=== PATIENT | female | born 1965 | race Caucasian/White ===

== ENCOUNTER 2017-01-09 11:36 | Inpatient (IN) | payer SELFPAY ==
[~2017-01-09] VITALS: Ht 147.3 cm; Wt 115.4 kg
[2017-01-09] VITALS (9 sets, daily range): BP systolic 137–201; BP diastolic 64–101; PULSE 84–111; RESP 18–26; TEMP 98.4–99; O2SAT 92–98
--- NOTE | 2017-01-09 11:59 | PD ---
HPI Chief Complaint: Chest Pain Time Seen by Provider: 11:53 Travel History International Travel<30 days: No Contact w/Intl Traveler<30days: No Traveled to known affect area: No History of Present Illness HPI Patient comes in complaining of shortness of breath and left-sided chest pain that began approximately 2 hours ago. Patient describes pain as pressure/ tightness like in nature and radiates to her back. Patient does have a history of asthma states this feels somewhat different. Denies any nausea, vomiting, abdominal pain, headache, diarrhea, headache, or numbness or tingling anywhere. Patient states she had a little bit of dyspnea on exertion last night while going up a slight hill about 10 steps. Patient used her rescue inhaler with minimal relief of her symptoms. Patient states she felt fine this morning until 2 hours prior to coming to the emergency department began having chest pain and shortness of breath. Patient denies doing anything for this prior coming to the emergency department. Patient has a history of hypertension and asthma but has not seen a primary care doctor proximally 2 years since moving from [place] secondary to lack of insurance. Patient reports that her legs do swell when she works on her feet all day however is resolved by morning. Denies any recent travel. PFSH Past Medical History Asthma: Yes Hypertension: Yes ?: Not Past Surgical History Appendectomy: Yes Hysterectomy: Yes Social History Alcohol Use: No Tobacco Use: No Substance Use: No Allergies-Medications (Allergen,Severity, Reaction): Coded Allergies: [place] (Verified Allergy, Unknown, 01/09/17) Peanut (Verified Allergy, Unknown, 01/09/17) Penicillin (Verified Allergy, Unknown, 01/09/17) Reported Meds & Prescriptions Reported Meds & Active Scripts Active No Active Prescriptions or Reported Medications Review of Systems Except as stated in HPI: all other systems reviewed are Neg Physical Exam Narrative GENERAL: Well-developed, overly nourished, in mild distress, and non-ill appearing. SKIN: Focused skin assessment warm and dry. HEAD: Atraumatic. Normocephalic. EYES: Pupils equal and round. EOMI. No scleral icterus. No injection or drainage. ENT: No nasal bleeding or discharge. Mucous membranes pink and moist. NECK: Trachea midline. Supple. No nuclear rigidity. CARDIOVASCULAR: Regular rate and rhythm. No murmur appreciated. Radial pulses 2+, intact, and equal bilaterally. RESPIRATORY: Accessory muscle use. Mild respiratory distress. Scant expiratory wheezing throughout. MUSCULOSKELETAL: No obvious deformities. No clubbing. No cyanosis. No edema. Full range of motion. NEUROLOGICAL: Awake and alert. No obvious cranial nerve deficits. Motor grossly within normal limits. Normal speech. PSYCHIATRIC: Appropriate mood and affect; insight and judgment normal. Data Data Last Documented VS Vital Signs Date Time Temp Pulse Resp B/P Pulse Ox O2 Delivery O2 Flow Rate FiO2 01/09/17 12:50 90 18 159/95 97 01/09/17 11:57 Room Air 01/09/17 11:40 98.4 Orders Complete Blood Count With Diff (01/09/17 11:51) Basic Metabolic Panel (Bmp) (01/09/17 11:51) B-Type Natriuretic Peptide (01/09/17 11:51) Act Partial Throm Time (Ptt) (01/09/17 11:51) Prothrombin Time / Inr (Pt) (01/09/17 11:51) Magnesium (Mg) (01/09/17 11:51) Ckmb (Isoenzyme) Profile (01/09/17 11:51) Troponin I (01/09/17 11:51) Iv Access Insert/Monitor (01/09/17 11:51) Electrocardiogram (01/09/17 11:51) Ecg Monitoring (01/09/17 11:51) Oximetry (01/09/17 11:51) Oxygen Administration (01/09/17 11:51) Chest, Single Ap (01/09/17 11:51) Sodium Chloride 0.9% Flush (Ns Flush) (01/09/17 12:00) Albuterol-Ipratropium Neb (Duoneb Neb) (01/09/17 12:00) Aspirin Chew (Aspirin Chew) (01/09/17 12:00) Nitroglycerin 2% Oint (Nitroglycerin 2% (01/09/17 12:00) Albuterol-Ipratropium Neb (Duoneb Neb) (01/09/17 12:30) Methylprednisolone So Succ Inj (Solumedr (01/09/17 12:30) Lactic Acid Sepsis Protocol (01/09/17 12:50) Blood Culture (01/09/17 12:50) Ceftriaxone Inj (Rocephin Inj) (01/09/17 13:00) Azithromycin Inj (Zithromax Inj) (01/09/17 13:00) CKMB (01/09/17 11:55) CKMB% (01/09/17 11:55) Calcium Gluconate Inj (Calcium Gluconate (01/09/17 13:15) Insulin Human Regular Inj (Novolin R Inj (01/09/17 13:15) Dextrose 50% In Carmen (Vial) Inj (D50w (Vi (01/09/17 13:15) Sodium Bicarbonate 8.4% Inj (Sodium Bica (01/09/17 13:15) Sodium Polysty Sulfate Liq (Kayexalate L (01/09/17 13:15) Sodium Chlor 0.9% 1000 Ml Inj (Ns 1000 M (01/09/17 14:00) Admit Order (Ed Use Only) (01/09/17 14:24) Labs Laboratory Tests Test 01/09/17 01/09/17 11:55 13:15 White Blood Count 13.0 TH/MM3 Red Blood Count 4.51 MIL/MM3 Hemoglobin 13.1 GM/DL Hematocrit 39.6 % Mean Corpuscular Volume 87.8 FL Mean Corpuscular Hemoglobin 29.0 PG Mean Corpuscular Hemoglobin 33.0 % Concent Red Cell Distribution Width 13.9 % Platelet Count 335 TH/MM3 Mean Platelet Volume 8.9 FL Neutrophils (%) (Auto) 64.0 % Lymphocytes (%) (Auto) 30.3 % Monocytes (%) (Auto) 3.9 % Eosinophils (%) (Auto) 1.3 % Basophils (%) (Auto) 0.5 % Neutrophils # (Auto) 8.3 TH/MM3 Lymphocytes # (Auto) 3.9 TH/MM3 Monocytes # (Auto) 0.5 TH/MM3 Eosinophils # (Auto) 0.2 TH/MM3 Basophils # (Auto) 0.1 TH/MM3 CBC Comment DIFF FINAL Differential Comment Prothrombin Time 10.2 SEC Prothromb Time International 0.9 RATIO Ratio Activated Partial 25.7 SEC Thromboplast Time Sodium Level 136 MEQ/L Potassium Level 5.7 MEQ/L Chloride Level 106 MEQ/L Carbon Dioxide Level 23.3 MEQ/L Anion Gap 7 MEQ/L Blood Urea Nitrogen 15 MG/DL Creatinine 0.93 MG/DL Estimat Glomerular Filtration 63 ML/MIN Rate Random Glucose 140 MG/DL Calcium Level 8.9 MG/DL Magnesium Level 1.8 MG/DL Total Creatine Kinase 307 U/L Creatine Kinase MB 4.0 NG/ML Creatine Kinase MB % 1.3 % Troponin I LESS THAN 0.02 NG/ML B-Type Natriuretic Peptide 133 PG/ML Lactic Acid Level 2.7 mmol/L MDM Medical Decision Making Medical Screen Exam Complete: Yes Emergency Medical Condition: Yes Interpretation(s) EKG reviewed by Dr. Kohler shows normal sinus rhythm with ventricular rate of 86. No STEMI. Differential Diagnosis Acute coronary syndrome, CHF exacerbation, asthma exacerbation, pneumonia, electrolyte abnormality, other Narrative Course 1218 patient reassessed status post initial DuoNeb reports improvement of symptoms. Lungs reassessed more wheezing noted throughout. Patient moving air easier. Will add additional DuoNeb as well as Solu-Medrol and reassess. Labs pending. Discussed patient with Dr. Kohler, who saw and evaluated the patient is in agreement with plan of care. 1330 patient reports improvement of symptoms status post do an abscess and Solu- Medrol. Patient still complaining of some chest discomfort on left side, but overall symptoms have improved. [address] Kohler, who recommends having patient admitted for further treatment and evaluation. Discussed all findings and plan of care with patient was agreeable for admission. All questions were answered. Sepsis Criteria SIRS Criteria (2 or more): Heart rate over 90, RR > 20 or PaCO2 < 32, WBC > 01272, < 4000 or > 10% bands Sepsis Criteria (SIRS+source): Infect source susp/known Severe Sepsis (+one): Lactate >2 Physician Communication Physician Communication [address] Galeano, who is agreeable to admit the patient. Diagnosis Primary Impression: Sepsis Qualified Code: A41.9 - Sepsis, due to unspecified organism Additional Impressions: Pneumonia Qualified Code: J18.9 - Pneumonia of both lower lobes due to infectious organism Hyperkalemia Chest pain Qualified Code: R07.9 - Chest pain, unspecified type Admitting Information Admitting Physician Requests: Admit Scripts No Active Prescriptions or Reported Meds Condition: Stable Addy Rojas January 09, 2017 11:59
[2017-01-09] MEDS ORDERED: ASPIRIN 81 MG CHEW TAB PO ONE (12:00)
[2017-01-09] MEDS ORDERED: NITROGLYCERIN 2% OINT 1 GM PACKET TOP ONE (12:00)
[2017-01-09] MEDS ORDERED: RESP: ALBUTEROL 2.5 MG/IPRATROPIUM 0.5 MG NEB (SCH) INH ONE (12:00)
[2017-01-09] MEDS ORDERED: SODIUM CHLORIDE 0.9% FLUSH 10 ML FLUSH IVF PRN (12:00)
--- NOTE | 2017-01-09 12:00 | PD ---
Data Data Last Documented VS Vital Signs Date Time Temp Pulse Resp B/P Pulse Ox O2 Delivery O2 Flow Rate FiO2 01/09/17 12:50 90 18 159/95 97 01/09/17 11:57 Room Air 01/09/17 11:40 98.4 Orders Complete Blood Count With Diff (01/09/17 11:51) Basic Metabolic Panel (Bmp) (01/09/17 11:51) B-Type Natriuretic Peptide (01/09/17 11:51) Act Partial Throm Time (Ptt) (01/09/17 11:51) Prothrombin Time / Inr (Pt) (01/09/17 11:51) Magnesium (Mg) (01/09/17 11:51) Ckmb (Isoenzyme) Profile (01/09/17 11:51) Troponin I (01/09/17 11:51) Iv Access Insert/Monitor (01/09/17 11:51) Electrocardiogram (01/09/17 11:51) Ecg Monitoring (01/09/17 11:51) Oximetry (01/09/17 11:51) Oxygen Administration (01/09/17 11:51) Chest, Single Ap (01/09/17 11:51) Sodium Chloride 0.9% Flush (Ns Flush) (01/09/17 12:00) Albuterol-Ipratropium Neb (Duoneb Neb) (01/09/17 12:00) Aspirin Chew (Aspirin Chew) (01/09/17 12:00) Nitroglycerin 2% Oint (Nitroglycerin 2% (01/09/17 12:00) Albuterol-Ipratropium Neb (Duoneb Neb) (01/09/17 12:30) Methylprednisolone So Succ Inj (Solumedr (01/09/17 12:30) Lactic Acid Sepsis Protocol (01/09/17 12:50) Blood Culture (01/09/17 12:50) Ceftriaxone Inj (Rocephin Inj) (01/09/17 13:00) Azithromycin Inj (Zithromax Inj) (01/09/17 13:00) CKMB (01/09/17 11:55) CKMB% (01/09/17 11:55) Calcium Gluconate Inj (Calcium Gluconate (01/09/17 13:15) Insulin Human Regular Inj (Novolin R Inj (01/09/17 13:15) Dextrose 50% In Carmen (Vial) Inj (D50w (Vi (01/09/17 13:15) Sodium Bicarbonate 8.4% Inj (Sodium Bica (01/09/17 13:15) Sodium Polysty Sulfate Liq (Kayexalate L (01/09/17 13:15) Sodium Chlor 0.9% 1000 Ml Inj (Ns 1000 M (01/09/17 14:00) Admit Order (Ed Use Only) (01/09/17 14:24) Labs Laboratory Tests Test 01/09/17 01/09/17 11:55 13:15 White Blood Count 13.0 TH/MM3 Red Blood Count 4.51 MIL/MM3 Hemoglobin 13.1 GM/DL Hematocrit 39.6 % Mean Corpuscular Volume 87.8 FL Mean Corpuscular Hemoglobin 29.0 PG Mean Corpuscular Hemoglobin 33.0 % Concent Red Cell Distribution Width 13.9 % Platelet Count 335 TH/MM3 Mean Platelet Volume 8.9 FL Neutrophils (%) (Auto) 64.0 % Lymphocytes (%) (Auto) 30.3 % Monocytes (%) (Auto) 3.9 % Eosinophils (%) (Auto) 1.3 % Basophils (%) (Auto) 0.5 % Neutrophils # (Auto) 8.3 TH/MM3 Lymphocytes # (Auto) 3.9 TH/MM3 Monocytes # (Auto) 0.5 TH/MM3 Eosinophils # (Auto) 0.2 TH/MM3 Basophils # (Auto) 0.1 TH/MM3 CBC Comment DIFF FINAL Differential Comment Prothrombin Time 10.2 SEC Prothromb Time International 0.9 RATIO Ratio Activated Partial 25.7 SEC Thromboplast Time Sodium Level 136 MEQ/L Potassium Level 5.7 MEQ/L Chloride Level 106 MEQ/L Carbon Dioxide Level 23.3 MEQ/L Anion Gap 7 MEQ/L Blood Urea Nitrogen 15 MG/DL Creatinine 0.93 MG/DL Estimat Glomerular Filtration 63 ML/MIN Rate Random Glucose 140 MG/DL Calcium Level 8.9 MG/DL Magnesium Level 1.8 MG/DL Total Creatine Kinase 307 U/L Creatine Kinase MB 4.0 NG/ML Creatine Kinase MB % 1.3 % Troponin I LESS THAN 0.02 NG/ML B-Type Natriuretic Peptide 133 PG/ML Lactic Acid Level 2.7 mmol/L [facility] Medical Record Reviewed: Yes Supervised Visit with EM[facility]: Yes Narrative Course I, Dr. Kohler, have reviewed the advance practice practitioner's documentation and am in agreement, met with the patient face to face, made the diagnosis, and the medical decision making was done by me. *My assessment and Findings: CBC & BMP Diagram 01/09/17 11:55 Tn < 0.02 BNP 133 EKG reveals a sinus rhythm at a rate of 100, normal axis and intervals, no ischemic injury pattern Last 24 hours Impressions Chest X-Ray 01/09/17 1151 Signed Impressions: Service Date/Time: Monday, January 09, 2017 12:01 - CONCLUSION: Moderate left mid to lower lung consolidation. Mild right lower lung parenchymal opacity. Omar Lynch MD Pt has PNA, CP and dyspnea. Hyperkalemia also noted and treated here with d50/ insulin, kayexylate, calcium and bicarb one ampule. Admission planned to management of the aforementioned. Wiliam Kohler MD January 09, 2017 12:00
[2017-01-09 12:15] LABS: AUTOMATED NEUTROPHIL # 8.3 TH/MM3 (1.8-7.7); BASOPHIL # 0.1 TH/MM3 (0-0.2); BASOPHIL % 0.5 % (0.0-2.0); EOSINOPHIL # 0.2 TH/MM3 (0-0.4); EOSINOPHIL % 1.3 % (0.0-4.0); HEMATOCRIT 39.6 % (35.0-46.0); HEMO FLAGS DIFF FINAL; LYMPH % 30.3 % (9.0-44.0); LYMPHOCYTE # 3.9 TH/MM3 (1.0-4.8); MEAN CELL VOLUME 87.8 FL (80.0-100.0); MONO % 3.9 % (0.0-8.0); PLATELET COUNT 335 TH/MM3 (150-450); RED BLOOD COUNT 4.51 MIL/MM3 (4.00-5.30); RED CELL DISTRIBUTION WIDTH 13.9 % (11.6-17.2)
[2017-01-09] MEDS: RESP: ALBUTEROL 2.5 MG/IPRATROPIUM 0.5 MG NEB (SCH) INH (12:28)
[2017-01-09 12:30] LABS: APTT (PATIENT) 25.7 SEC (24.3-30.1); INTERNATIONAL NORMALIZED RATIO 0.9 RATIO; PROTHROMBIN TIME - PATIENT 10.2 SEC (9.8-11.6)
[2017-01-09] MEDS ORDERED: methylPREDNISolone SOD SUCC 125 MG/2 ML VIAL IV PUSH ONE (12:30)
--- NOTE | 2017-01-09 12:44 | RADRPT ---
EXAM DATE/TIME: 01/09/2017 12:01 [facility] COMPARISON: No previous studies available for comparison. INDICATIONS : Short of breath for a day. MEDICAL HISTORY : Asthma. SURGICAL HISTORY : None. ENCOUNTER: Initial ACUITY: 1 day PAIN SCORE: 0/10 LOCATION: Bilateral chest FINDINGS: Single AP view of the chest. Moderate-sized area of left midlung consolidation. Mild right lung base opacity. Cardiomediastinal silhouette within normal limits. No evidence of pleural effusion or pneumo thorax. CONCLUSION: Moderate left mid to lower lung consolidation. Mild right lower lung parenchymal opacity. Omar Lynch MD on January 09, 2017 at 12:42 Board Certified Radiologist. This report was verified electronically.
[2017-01-09 12:50] LABS: ANION GAP 7 MEQ/L (5-15); BICARBONATE 23.3 MEQ/L (21.0-32.0); BLOOD UREA NITROGEN 15 MG/DL (7-18); CHLORIDE 106 MEQ/L (98-107); GLOMERULAR FILTRATION RATE 63 ML/MIN (>89); MAGNESIUM 1.8 MG/DL (1.5-2.5); POTASSIUM 5.7 MEQ/L (3.5-5.1); SODIUM (NA) 136 MEQ/L (136-145)
[2017-01-09] MEDS ORDERED: cefTRIAXone INJ 1,000 MG in SODIUM CHLORIDE 0.9% INJ 100 ML IV ONE (13:00)
[2017-01-09] MEDS ORDERED: AZITHROMYCIN INJ 500 MG in SODIUM CHLOR 0.9% 250 ML INJ 250 ML IV ONE (13:00)
[2017-01-09 13:01] LABS: CREATINE KINASE 307 U/L (26-192)
[2017-01-09] MEDS ORDERED: INSULIN HUMAN REGULAR 1,000 UNITS/10 ML VIAL IV PUSH ONE (13:15)
[2017-01-09] MEDS ORDERED: DEXTROSE 50% IN WATER 50 ML VIAL(D50) IV PUSH ONE (13:15)
[2017-01-09] MEDS ORDERED: CALCIUM GLUCONATE 10% 1 GM/10 ML VIAL SLOW IVP ONE (13:15)
[2017-01-09] MEDS ORDERED: SODIUM BICARBONATE 8.4% SOLN 50 MEQ/50 ML VIAL SLOW IVP ONE (13:15)
[2017-01-09] MEDS ORDERED: SODIUM POLYSTYRENE SULFONATE SUSP 15 GM/60 ML CUP PO ONE (13:15)
[2017-01-09] MEDS ORDERED: SODIUM CHLOR 0.9% 1000 ML INJ 1,000 ML IV ONE (14:00)
[2017-01-09] MEDS ORDERED: RESP: ALBUTEROL CONC 2.5 MG/0.5 ML NEB INH ONE (15:00)
[2017-01-09] MEDS ORDERED: ONDANSETRON HCL 4 MG/2 ML VIAL IVP PRN (15:00)
[2017-01-09] MEDS ORDERED: NALOXONE HCL 0.4 MG/ML AMP IV PRN (15:00)
[2017-01-09] MEDS ORDERED: SODIUM CHLORIDE 0.9% FLUSH 10 ML FLUSH IV FLUSH PRN (15:00)
[2017-01-09] MEDS ORDERED: MAGNESIUM HYDROXIDE SUSP 30 ML CUP PO PRN (15:00)
--- NOTE | 2017-01-09 15:02 | HHI.HP ---
[facility] Service [facility] Primary Care Physician No Primary Care Physician Admission Diagnosis sepsis, pneumonia, hyperkalemia, chest pain Diagnoses: Chief Complaint: Chest pain, shortness of breath Travel History International Travel<30 Days: No Contact w/Intl Traveler <30 Da: No Traveled to Known Affected Are: No Sepsis Criteria SIRS Criteria (2 or more): Heart rate over 90, RR > 20 or PaCO2 < 32, WBC > 70647, < 4000 or > 10% bands Severe Sepsis (+one): Lactate >2 Criteria Outcome: Meets SIRS criteria, Meets sepsis criteria, Meets severe sepsis criteria History of Present Illness Ms. Platt is a pleasant 51-year-old female with a history of hypertension, asthma who presents to the emergency department today due to left-sided chest pain and shortness of breath and diaphoresis. Patient describes left-sided chest pressure/tightness and radiating to her back. Chest discomfort has a squeezing quality, worse with exertion, improves with rest. She is having frequent episodes of diaphoresis as well. Last night when she was walking from her car to her apartment, she felt sweaty and short of breath. Last night she did not sleep much. This morning she woke up with left sided chest discomfort, had sweating and shortness of breath. No fever, chills. Patient also denies any cough. On arrival temperature 98.4 pulse 92 respirations 26 blood pressure 201/ 101 pulse oximetry 98% on room air. She denies any nausea, vomiting, abdominal pain, headache, diarrhea. Denies any changes in bowel or bladder habits. Review of Systems Except as stated in HPI: all other systems reviewed are Neg Past Family Social History Past Medical History Hypertension, asthma Past Surgical History Appendectomy and hysterectomy Reported Medications Currently does not take any medication on a regular basis. Allergies: Coded Allergies: [place] (Verified Allergy, Unknown, 01/09/17) Peanut (Verified Allergy, Unknown, 01/09/17) Penicillin (Verified Allergy, Unknown, 01/09/17) Family History Mother had heart disease in her 50s. Father had heart disease as well in his 50s. Social History Denies using alcohol tobacco or illicit substance. Physical Exam Vital Signs Vital Signs Date Time Temp Pulse Resp B/P Pulse Ox O2 Delivery O2 Flow Rate FiO2 01/09/17 12:50 90 18 159/95 97 01/09/17 11:57 Room Air 01/09/17 11:57 97 Room Air 01/09/17 11:47 98 Room Air 01/09/17 11:40 98.4 92 26 201/101 98 Physical Exam GENERAL: This is a well-nourished, well-developed patient, in no apparent distress. Morbidly obese. SKIN: No rashes, ecchymoses or lesions. Warm and dry. HEAD: Atraumatic. Normocephalic. No temporal or scalp tenderness. EYES: Pupils equal round and reactive. No injection or drainage. ENT: Nose without bleeding, purulent drainage or septal hematoma. Airway patent. NECK: Trachea midline. No lymphadenopathy. Supple, nontender, no meningeal signs. CARDIOVASCULAR: Regular rhythm, mildly tachycardic without murmurs, gallops, or rubs. No JVD. RESPIRATORY: Clear to auscultation. Breath sounds equal bilaterally. No wheezes , rales, or rhonchi. GASTROINTESTINAL: Abdomen soft, non-tender, nondistended. No guarding. MUSCULOSKELETAL: Extremities without clubbing, cyanosis, or edema. NEUROLOGICAL: Awake and alert. Cranial nerves II through XII intact. No focal neurological deficits. Normal speech. Laboratory Laboratory Tests Test 01/09/17 01/09/17 11:55 13:15 White Blood Count 13.0 Red Blood Count 4.51 Hemoglobin 13.1 Hematocrit 39.6 Mean Corpuscular Volume 87.8 Mean Corpuscular Hemoglobin 29.0 Mean Corpuscular Hemoglobin 33.0 Concent Red Cell Distribution Width 13.9 Platelet Count 335 Mean Platelet Volume 8.9 Neutrophils (%) (Auto) 64.0 Lymphocytes (%) (Auto) 30.3 Monocytes (%) (Auto) 3.9 Eosinophils (%) (Auto) 1.3 Basophils (%) (Auto) 0.5 Neutrophils # (Auto) 8.3 Lymphocytes # (Auto) 3.9 Monocytes # (Auto) 0.5 Eosinophils # (Auto) 0.2 Basophils # (Auto) 0.1 CBC Comment DIFF FINAL Differential Comment Prothrombin Time 10.2 Prothromb Time International 0.9 Ratio Activated Partial 25.7 Thromboplast Time Sodium Level 136 Potassium Level 5.7 Chloride Level 106 Carbon Dioxide Level 23.3 Anion Gap 7 Blood Urea Nitrogen 15 Creatinine 0.93 Estimat Glomerular Filtration 63 Rate Random Glucose 140 Calcium Level 8.9 Magnesium Level 1.8 Total Creatine Kinase 307 Creatine Kinase MB 4.0 Creatine Kinase MB % 1.3 Troponin I LESS THAN 0.02 B-Type Natriuretic Peptide 133 Lactic Acid Level 2.7 Date/Time Procedure Status Source Growth 01/09/17 13:15 Aerobic Blood Culture Received Blood Peripheral Pending 01/09/17 13:15 Anaerobic Blood Culture Received Blood Peripheral Pending Result Diagram: 01/09/17 1155 01/09/17 1155 Imaging Last Impressions Chest X-Ray 01/09/17 1151 Signed Impressions: Service Date/Time: Monday, January 09, 2017 12:01 - CONCLUSION: Moderate left mid to lower lung consolidation. Mild right lower lung parenchymal opacity. Omar Lynch MD Assessment and Plan Problem List: (1) Severe sepsis ICD Code: A41.9 Status: Acute (2) Pneumonia ICD Code: J18.9 Status: Acute (3) Chest pain ICD Code: R07.9 Status: Acute (4) Hyperkalemia ICD Code: E87.5 Status: Acute (5) Morbid obesity with BMI of 50.0-59.9, adult ICD Code: E66.01 Status: Acute Assessment and Plan Ms. Platt is a 51-year-old female with a history of hypertension, asthma who presents to the emergency department today due to left-sided chest pain, shortness of breath, diaphoresis. Her chest pain is increased with exertion and decreased with rest. Severe sepsis (WBC 13,000, heart rate 92, respiration 26, chest x-ray finding of moderate left mid to lower lung consolidation, lactic acid 2.7) Community Acquired Pneumonia - Patient received ceftriaxone 1 g and azithromycin 500 mg in the emergency department. - Continue Levaquin 750mg IV for now - Levaquin duration 7 days. - Duoneb Q4 hours PRN - Supplemental oxygen as needed to keep O2 sat above 90%. Chest pain - We'll check troponin 3. - Morbid obesity, hypertension, strong family history are all risk factors for heart disease for this patient. - We'll consider nuclear stress test in the morning. Nothing by mouth midnight except for medications. No caffeine after 7 PM. . Hyperkalemia - Potassium 5.7 patient received Kayexalate in the ED. - We'll give 10 mg of albuterol for hyperkalemia. - Recheck potassium this afternoon. Hypertension - Currently normotensive. If needed will start patient on amlodipine and/or lisinopril. Asthma - Continue DuoNeb PRN Morbid obesity - Counselled patient about lifestyle modifications, diet and exercise. Patient is motivated to loose weight. Full code. Ronald. Physician Certification 2 Midnight Certification Type: Admission for Inpatient Services Order for Inpatient Services The services are ordered in accordance with Medicare regulations or non- Medicare payer requirements, as applicable. In the case of services not specified as inpatient-only, they are appropriately provided as inpatient services in accordance with the 2-midnight benchmark. Estimated LOS (days): 2 days is the estimated time the patient will need to remain in the hospital, assuming treatment plan goals are met and no additional complications. Post-Hospital Plan: Home Problem Qualifiers (1) Pneumonia: Qualified Code: J18.9 - Pneumonia of both lower lobes due to infectious organism (2) Chest pain: Qualified Code: R07.9 - Chest pain, unspecified type Maggie Galeano DO January 09, 2017 3:02 pm
[2017-01-09 15:28] LABS: LACTIC ACID GHOST NOT REPORTABLE
[2017-01-09] MEDS: ENOXAPARIN SODIUM 40 MG/0.4 ML SYRINGE SQ SCH (15:44)
[2017-01-09] MEDS: ACETAMINOPHEN 325 MG TAB PO PRN (15:44)
[2017-01-09] MEDS ORDERED: RESP: ALBUTEROL 2.5 MG/IPRATROPIUM 0.5 MG NEB (PRN) NEB (17:45)
[2017-01-09] MEDS ORDERED: KETOROLAC TROMETHAMINE 60 MG/2 ML (IM) VIAL IM ONE (18:00)
[2017-01-09] MEDS: SODIUM CHLORIDE 0.9% FLUSH 10 ML FLUSH IV FLUSH SCH (21:00)
[2017-01-09 21:29] LABS: POTASSIUM 4.1 MEQ/L (3.5-5.1)
[2017-01-09] MEDS ORDERED: SODIUM CHLORID 0.9% 500 ML INJ 500 ML IV ONE (22:00)
[2017-01-09] MEDS ORDERED: CYCL1TAB29 PO (23:25)
[2017-01-09] MEDS ORDERED: TEMA30CA PO (23:25)
[2017-01-09] MEDS ORDERED: TRAZ50TA12 PO (23:25)
[2017-01-09] MEDS ORDERED: TEMAZEPAM 7.5 MG CAP PO ONE (23:30)
[2017-01-10] VITALS (9 sets, daily range): BP systolic 126–168; BP diastolic 59–90; PULSE 93–103; RESP 16–18; TEMP 97.7–98.7; O2SAT 94–98
[2017-01-10 00:08] LABS: BLOOD GAS BASE EXCESS -4.4 mmol/L (-2-2); BLOOD GAS CARBOXYHEMOGLOBIN 1.1 % (0-4); BLOOD GAS HCO3 20 mmol/L (22-26); BLOOD GAS METHEMOGLOBIN 0.8 % (0-2); BLOOD GAS O2 HGB SATURATION 96 % (90-100); BLOOD GAS OXYGEN CONTENT 15.5 Vol % (12.0-20.0); BLOOD GAS PCO2 36 mmHg (38-42); BLOOD GAS PO2 101 mmHg (61-120); BLOOD GAS TOTAL HGB 11.4 G/DL (12.0-16.0); TEMP CORR TO 98.6
[2017-01-10 00:09] LABS: CRITICAL VALUE NO; DRAW SITE RT RADIAL; LITER FLOW 2 L/M; NUMBER OF ARTERIAL PUNCTURES 1; OXYGEN DEVICE NASAL CANNULA; STAT YES; ULNAR PULSE PRESENT
[2017-01-10] MEDS ORDERED: SODIUM CHLORID 0.9% 500 ML INJ 500 ML IV ONE (01:00)
[2017-01-10] MEDS ORDERED: IOHEXOL 350 MG/ML 10 ML VIAL (for RAD DIAG) IV ONE (01:47)
--- NOTE | 2017-01-10 01:59 | RADRPT ---
EXAM DATE/TIME: 01/10/2017 01:35 [facility] COMPARISON: No previous studies available for comparison. INDICATIONS : Shortness of breath. Evaluate for embolism. IV CONTRAST: 75 cc Omnipaque 350 (iohexol) IV RADIATION DOSE: 25.44 CTDIvol (mGy) MEDICAL HISTORY : Hypertension. SURGICAL HISTORY : Hysterectomy. ENCOUNTER: Initial ACUITY: 1 day PAIN SCALE: 0/10 LOCATION: Bilateral chest TECHNIQUE: Volumetric scanning of the chest was performed using a pulmonary embolism protocol MIP images were re constructed. Using automated exposure control and adjustment of the mA and/or kV according to patien t size, radiation dose was kept as low as reasonably achievable to obtain optimal diagnostic quality images. FINDINGS: PULMONARY ARTERIES: No filling defects are seen in the pulmonary arteries through the segmental level. LUNGS: Groundglass infiltrates scattered throughout the left upper lobe. Remaining lungs are clear. Mild ate lectasis within the basilar segments on the left. PLEURAE: Tiny left pleural effusion. No effusion on the right. MEDIASTINUM: There is good visualization of the great vessels of the middle mediastinum. No evidence of mediastin al or hilar adenopathy/mass. MUSCULOSKELETAL: Within normal limits for patient age. MISCELLANEOUS: The visualized upper abdominal organs demonstrate no acute abnormality. CONCLUSION: 1. No PE. 2. Left upper lobe infiltrate likely infectious in etiology with small left effusion. Irvin Krishnamurthy Jr., MD on January 10, 2017 at 1:55 Board Certified Radiologist. This report was verified electronically.
[2017-01-10 02:32] LABS: AUTOMATED NEUTROPHIL # 8.4 TH/MM3 (1.8-7.7); BASOPHIL % 0.2 % (0.0-2.0); HEMATOCRIT 34.2 % (35.0-46.0); HEMO FLAGS DIFF FINAL; LYMPH % 13.5 % (9.0-44.0); LYMPHOCYTE # 1.4 TH/MM3 (1.0-4.8); MEAN CELL VOLUME 88.8 FL (80.0-100.0); MEAN CORPUSCULAR HEMOGLOBIN 28.6 PG (27.0-34.0); MEAN CORPUSCULAR HGB CONC 32.2 % (32.0-36.0); NEUT % 83.3 % (16.0-70.0); PLATELET COUNT 287 TH/MM3 (150-450); RED BLOOD COUNT 3.85 MIL/MM3 (4.00-5.30); RED CELL DISTRIBUTION WIDTH 13.8 % (11.6-17.2); WHITE BLOOD COUNT 10.1 TH/MM3 (4.0-11.0)
[2017-01-10 03:01] LABS: ANION GAP 11 MEQ/L (5-15); BICARBONATE 22.4 MEQ/L (21.0-32.0); BLOOD UREA NITROGEN 9 MG/DL (7-18); CHLORIDE 106 MEQ/L (98-107); GLOMERULAR FILTRATION RATE 73 ML/MIN (>89); HDL CHOLESTEROL 54.7 MG/DL (40.0-60.0); LDL CHOLESTEROL 127 MG/DL (0-99); POTASSIUM 3.8 MEQ/L (3.5-5.1); SODIUM (NA) 139 MEQ/L (136-145)
--- NOTE | 2017-01-10 06:18 | EKG ---
Date Performed: 01/09/2017 Time Performed: 11:58:02 PTAGE: 51 years EKG: Sinus rhythm MINIMAL VOLTAGE CRITERIA FOR LVH, CONSIDER NORMAL VARIANT BORDERLINE ECG NO PREVIOUS TRACING DOCTOR: Julio March Interpretating Date/Time 01/10/2017 06:17:37
[2017-01-10] MEDS: SODIUM CHLORIDE 0.9% FLUSH 10 ML FLUSH IV FLUSH SCH ×2 (08:43→20:01)
[2017-01-10] MEDS: LEVOFLOXACIN 750 MG PREMIX INJ 150 ML IV SCH (08:43)
[2017-01-10] MEDS ORDERED: LEVOFLOXACIN 750 MG TAB PO SCH (09:00)
[2017-01-10] MEDS ORDERED: PNEUMOCOCCAL POLYVALENT INJ 25 MCG/0.5 ML SYR IM ONE (10:00)
[2017-01-10] MEDS ORDERED: REGADENOSON INJ 0.4 MG/5 ML SYR ONE (13:58)
[2017-01-10] MEDS: ENOXAPARIN SODIUM 40 MG/0.4 ML SYRINGE SQ SCH (15:43)
[2017-01-10] MEDS ORDERED: TEMAZEPAM 15 MG CAP PO PRN (16:00)
--- NOTE | 2017-01-10 16:00 | HHI.PR ---
Subjective Remarks Follow up for pneumonia, chest pain. Patient is doing well, came back from stress test. Sitting in the chair. No fever, chills. She still has some left sided chest discomfort. Objective Vitals Vital Signs Date Time Temp Pulse Resp B/P Pulse Ox O2 Delivery O2 Flow Rate FiO2 01/10/17 15:00 98 01/10/17 12:00 98.0 97 16 156/72 98 01/10/17 10:23 94 Nasal Cannula 2.00 01/10/17 08:00 97.8 98 16 126/61 94 01/10/17 04:00 98.0 99 18 128/59 95 01/10/17 00:00 Nasal Cannula 2.00 01/10/17 00:00 98.2 103 18 132/64 94 01/09/17 22:00 94 Nasal Cannula 2.00 01/09/17 22:00 Nasal Cannula 2.00 01/09/17 21:18 98.7 106 22 150/81 98 01/09/17 20:00 98.7 111 18 151/73 94 01/09/17 19:41 88 01/09/17 17:31 104 01/09/17 16:40 99.0 102 18 137/64 92 I/O 01/09/17 01/09/17 01/09/17 01/10/17 01/10/17 01/10/17 07:00 15:00 23:00 07:00 15:00 23:00 Intake Total 240 ml 1000 ml 100 ml Balance 240 ml 1000 ml 100 ml Intake Oral 240 ml 0 ml IV Total 1000 ml 100 ml # Voids 2 1 # Bowel Movements 0 0 Result Diagram: 01/10/177 01/10/17 [address] Angiography 01/10/17 0000 Signed Impressions: Service Date/Time: Tuesday, January 10, 2017 01:35 - CONCLUSION: 1. No PE. 2. Left upper lobe infiltrate likely infectious in etiology with small left effusion. Irvin Krishnamurthy Jr., MD Chest X-Ray 01/09/17 1151 Signed Impressions: Service Date/Time: Monday, January 09, 2017 12:01 - CONCLUSION: Moderate left mid to lower lung consolidation. Mild right lower lung parenchymal opacity. Omar Lynch MD Objective Remarks GENERAL: AOX3, NAD. Morbidly obese. SKIN: Warm and dry. HEAD: Normocephalic. EYES: No scleral icterus. No injection or drainage. NECK: Supple, trachea midline. No JVD or lymphadenopathy. CARDIOVASCULAR: Regular rate and rhythm without murmurs, gallops, or rubs. RESPIRATORY: Breath sounds equal bilaterally. No accessory muscle use. GASTROINTESTINAL: Abdomen soft, non-tender, nondistended. MUSCULOSKELETAL: No cyanosis, or edema. BACK: Nontender without obvious deformity. No CVA tenderness. Procedures Nuclear stress test. Results pending. A/P Problem List: (1) Severe sepsis ICD Code: A41.9 Status: Acute (2) Pneumonia ICD Code: J18.9 Status: Acute (3) Chest pain ICD Code: R07.9 Status: Acute (4) Hyperkalemia ICD Code: E87.5 Status: Acute (5) Morbid obesity with BMI of 50.0-59.9, adult ICD Code: E66.01 Status: Acute Assessment and Plan Ms. Platt is a 51-year-old female with a history of hypertension, asthma who presents to the emergency department today due to left-sided chest pain, shortness of breath, diaphoresis. Her chest pain is increased with exertion and decreased with rest. Severe sepsis (WBC 13,000, heart rate 92, respiration 26, chest x-ray finding of moderate left mid to lower lung consolidation, lactic acid 2.7) Community Acquired Pneumonia - Patient received ceftriaxone 1 g and azithromycin 500 mg in the emergency department. - Continue Levaquin 750mg IV for now - Levaquin duration 7 days. - Duoneb Q4 hours PRN - Supplemental oxygen as needed to keep O2 sat above 90%. - WBC 13.0 --> 10.1. Lactic acid 2.7 --> 7.4 --> 3.4. - Will check Lactic acid in the AM. Clinically patient appears to be doing well. Chest pain - troponin 3 negative. - Morbid obesity, hypertension, strong family history are all risk factors for heart disease for this patient. - Nuclear stress test today. - Hyperglycemia - Hemoglobin A1C 6.3. - Will discuss with patient regarding metformin treatment for pre-diabetes. . Hyperkalemia - Potassium 5.7 patient received Kayexalate in the ED. - Received 10 mg of albuterol for hyperkalemia. - Potassium corrected Hypertension - Start Amlodipine 5mg Qday. May increase to 10mg Qday. Asthma - Continue DuoNeb PRN Morbid obesity - Counselled patient about lifestyle modifications, diet and exercise. Patient is motivated to loose weight. Full code. Lovenox. Problem Qualifiers (1) Pneumonia: Qualified Code: J18.9 - Pneumonia of both lower lobes due to infectious organism (2) Chest pain: Qualified Code: R07.9 - Chest pain, unspecified type Maggie Galeano DO January 10, 2017 16:00
[2017-01-10] MEDS: ACETAMINOPHEN 325 MG TAB PO PRN (20:08)
[2017-01-10 22:31] LABS: HEMOGLOBIN A1a 1.5 %; HEMOGLOBIN A1b 2.2 %; HEMOGLOBIN Ao 83.8 %; HEMOGLOBIN P3 3.9 %
[2017-01-11] MEDS: ACETAMINOPHEN 325 MG TAB PO PRN ×2 (00:57→07:58)
[2017-01-11 04:18] VITALS: BP 169/89; PULSE 83; RESP 16; TEMP 98.3; O2SAT 95
[2017-01-11 05:43] LABS: AUTOMATED NEUTROPHIL # 4.1 TH/MM3 (1.8-7.7); BASOPHIL # 0.1 TH/MM3 (0-0.2); BASOPHIL % 0.8 % (0.0-2.0); EOSINOPHIL # 0.1 TH/MM3 (0-0.4); EOSINOPHIL % 1.3 % (0.0-4.0); HEMATOCRIT 34.7 % (35.0-46.0); HEMO FLAGS DIFF FINAL; LYMPH % 37.4 % (9.0-44.0); LYMPHOCYTE # 2.8 TH/MM3 (1.0-4.8); MEAN CELL VOLUME 87.2 FL (80.0-100.0); MEAN CORPUSCULAR HEMOGLOBIN 29.2 PG (27.0-34.0); MEAN CORPUSCULAR HGB CONC 33.5 % (32.0-36.0); MONO % 5.7 % (0.0-8.0); NEUT % 54.8 % (16.0-70.0); PLATELET COUNT 288 TH/MM3 (150-450); RED BLOOD COUNT 3.98 MIL/MM3 (4.00-5.30); RED CELL DISTRIBUTION WIDTH 13.6 % (11.6-17.2); WHITE BLOOD COUNT 7.5 TH/MM3 (4.0-11.0)
[2017-01-11] MEDS: SODIUM CHLORIDE 0.9% FLUSH 10 ML FLUSH IV FLUSH SCH (07:52)
[2017-01-11] MEDS: LEVOFLOXACIN 750 MG PREMIX INJ 150 ML IV SCH (07:54)
[2017-01-11 07:57] VITALS: PULSE 90
[2017-01-11 08:00] VITALS: BP 163/81; PULSE 95; RESP 18; TEMP 98.2; O2SAT 95
[2017-01-11] MEDS ORDERED: amLODIPine BESYLATE 5 MG TAB PO SCH (09:00)
[2017-01-11] MEDS ORDERED: ACETAMIN 325 MG/BUTALBITAL 50 MG/CAFFEINE 40 MG TAB PO PRN (09:30)
--- NOTE | 2017-01-11 11:59 | RADRPT ---
EXAM DATE/TIME: 01/10/2017 14:12 [facility] COMPARISON: No previous studies available for comparison. INDICATIONS : Left sided chest pain for one day with diaphoresis and shortness of breath. Angina. DOSE: 31.1 mCi Tc99m Myoview at stress. 30.1 mCi Tc99m Myoview at rest. 0.4 mg Lexiscan STRESS SYMPTOMS: Chest pain, dyspnea, and dizziness. EJECTION FRACTION: 69% MEDICAL HISTORY : Hypertension. SURGICAL HISTORY : Appendectomy. Hysterectomy. ENCOUNTER: Initial ACUITY: 1 day PAIN SCALE: 5/10 LOCATION: Left chest TECHNIQUE: The patient underwent pharmacologic stress with infusion of prescribed dose. Continuous ECG tracing was monitored during stress. Gated SPECT imaging was performed after stress and conventional SPECT i maging was performed at rest. The examination was performed on a SPECT/CT scanner, both attenuation and non-corrected datasets were reviewed. FINDINGS: DISTRIBUTION: The maximum perfused segment at stress is in the septal wall. PERFUSION STUDY: The pattern of perfusion at stress is within normal limits. GATED STUDY: There is intact wall motion and thickening without hypokinetic or dyskinetic segments. CONCLUSION: 1. No reversibility to suggest ischemia. 2. Normal wall motion with ejection fraction 69%. RISK CATEGORY: Low (<1% Annual Mortality Rate) Oren Rodriguez MD on January 11, 2017 at 11:55 Board Certified Radiologist. This report was verified electronically.
[2017-01-11 12:00] VITALS: BP 165/88; PULSE 86; RESP 18; TEMP 98.8; O2SAT 96
[2017-01-11] MEDS ORDERED: AMLO10TA2 PO (12:10)
[2017-01-11] MEDS ORDERED: METF500T PO (12:10)
[2017-01-11] MEDS ORDERED: BUTATAB6 PO (12:10)
[2017-01-11] MEDS ORDERED: SERO25TA PO (12:10)
[2017-01-11] MEDS ORDERED: LEVA750T PO (12:10)
--- NOTE | 2017-01-11 12:15 | HHI.DS ---
Discharge Summary Admission Date January 09, 2017 at 2:26 pm Discharge Date: January 11, 2017 Admitting Diagnosis sepsis, pneumonia, hyperkalemia, chest pain (1) Severe sepsis ICD Code: A41.9 Diagnosis: Principal (2) Pneumonia ICD Code: J18.9 Diagnosis: Principal (3) Chest pain ICD Code: R07.9 Diagnosis: Principal (4) Hyperkalemia ICD Code: E87.5 (5) Morbid obesity with BMI of 50.0-59.9, adult ICD Code: E66.01 Procedures Nuclear stress test. Results pending. Brief History - From Admission Ms. Platt is a pleasant 51-year-old female with a history of hypertension, asthma who presents to the emergency department today due to left-sided chest pain and shortness of breath and diaphoresis. Patient describes left-sided chest pressure/tightness and radiating to her back. Chest discomfort has a squeezing quality, worse with exertion, improves with rest. She is having frequent episodes of diaphoresis as well. Last night when she was walking from her car to her apartment, she felt sweaty and short of breath. Last night she did not sleep much. This morning she woke up with left sided chest discomfort, had sweating and shortness of breath. No fever, chills. Patient also denies any cough. On arrival temperature 98.4 pulse 92 respirations 26 blood pressure 201/ 101 pulse oximetry 98% on room air. She denies any nausea, vomiting, abdominal pain, headache, diarrhea. Denies any changes in bowel or bladder habits. CBC/BMP: 01/11/17 0527 01/10/17 0217 Significant Findings Laboratory Tests Test 01/09/17 01/09/17 01/09/17 01/09/17 11:55 13:15 19:55 20:34 White Blood Count 13.0 TH/MM3 (4.0-11.0) Neutrophils # (Auto) 8.3 TH/MM3 (1.8-7.7) Potassium Level 5.7 MEQ/L (3.5-5.1) Estimat Glomerular Filtration 63 ML/MIN (>89) Rate Random Glucose 140 MG/DL (74-106) Total Creatine Kinase 307 U/L (26-192) Creatine Kinase MB 4.0 NG/ML (0.5-3.6) Troponin I LESS THAN 0.02 LESS THAN 0.02 NG/ML NG/ML (0.02-0.05) (0.02-0.05) B-Type Natriuretic Peptide 133 PG/ML (0-100) Lactic Acid Level 2.7 mmol/L 7.4 mmol/L (0.4-2.0) (0.4-2.0) Test 01/09/17 01/09/17 01/09/17 01/10/17 23:00 23:47 23:58 02:17 D-Dimer Quantitative (PE/DVT) 0.88 MG/L FEU (0.00-0.50) B-Type Natriuretic Peptide 182 PG/ML (0-100) Blood Gas HCO3 20 mmol/L (22-26) Blood Gas Base Excess -4.4 mmol/L (-2-2) Arterial Blood pH 7.36 (7.380-7.420) Arterial Blood Partial 36 mmHg (38-42) Pressure CO2 Blood Gas Hemoglobin 11.4 G/DL (12.0-16.0) Red Blood Count 3.85 MIL/MM3 (4.00-5.30) Hemoglobin 11.0 GM/DL (11.6-15.3) Hematocrit 34.2 % (35.0-46.0) Neutrophils (%) (Auto) 83.3 % (16.0-70.0) Neutrophils # (Auto) 8.4 TH/MM3 (1.8-7.7) Estimat Glomerular Filtration 73 ML/MIN (>89) Rate Random Glucose 151 MG/DL (74-106) Hemoglobin A1c 6.3 % (4.3-6.0) Lactic Acid Level 3.4 mmol/L (0.4-2.0) Troponin I LESS THAN 0.02 NG/ML (0.02-0.05) Cholesterol Level 205 MG/DL (120-200) LDL Cholesterol 127 MG/DL (0-99) Test 01/11/17 05:27 Red Blood Count 3.98 MIL/MM3 (4.00-5.30) Hematocrit 34.7 % (35.0-46.0) Imaging Last Impressions CT Angiography 01/10/17 0000 Signed Impressions: Service Date/Time: Tuesday, January 10, 2017 01:35 - CONCLUSION: 1. No PE. 2. Left upper lobe infiltrate likely infectious in etiology with small left effusion. Irvin Krishnamurthy Jr., MD Chest X-Ray 01/09/17 1151 Signed Impressions: Service Date/Time: Monday, January 09, 2017 12:01 - CONCLUSION: Moderate left mid to lower lung consolidation. Mild right lower lung parenchymal opacity. Omar Lynch MD PE at Discharge GENERAL: AOX3, NAD. Morbidly obese. SKIN: Warm and dry. HEAD: Normocephalic. EYES: No scleral icterus. No injection or drainage. NECK: Supple, trachea midline. No JVD or lymphadenopathy. CARDIOVASCULAR: Regular rate and rhythm without murmurs, gallops, or rubs. RESPIRATORY: Breath sounds equal bilaterally. No accessory muscle use. GASTROINTESTINAL: Abdomen soft, non-tender, nondistended. MUSCULOSKELETAL: No cyanosis, or edema. BACK: Nontender without obvious deformity. No CVA tenderness. Pt update on day of discharge Patient is doing well. No acute concerns. However, she complains of anxiety, insomnia. Hospital Course Ms. Platt is a 51-year-old female with a history of hypertension, asthma who presents to the emergency department today due to left-sided chest pain, shortness of breath, diaphoresis. Her chest pain is increased with exertion and decreased with rest. Severe sepsis (WBC 13,000, heart rate 92, respiration 26, chest x-ray finding of moderate left mid to lower lung consolidation, lactic acid 2.7) Community Acquired Pneumonia - Patient received ceftriaxone 1 g and azithromycin 500 mg in the emergency department. - Received Levaquin 750mg IV- Levaquin duration 7 days. - Duoneb Q4 hours PRN - Supplemental oxygen as needed to keep O2 sat above 90%. - WBC 13.0 --> 10.1 --> 7.5. Lactic acid 2.7 --> 7.4 --> 3.4 --> 1.6 Chest pain - troponin 3 negative. - Morbid obesity, hypertension, strong family history are all risk factors for heart disease for this patient. - Hyperglycemia - Hemoglobin A1C 6.3. - Discussed with patient regarding metformin treatment for pre-diabetes. We will start patient on Metformin on discharge. . Hyperkalemia - Potassium 5.7 patient received Kayexalate in the ED. - Received 10 mg of albuterol for hyperkalemia. - Potassium corrected Hypertension - On discharge Amlodipine 10mg Qday Asthma - Continue DuoNeb PRN Morbid obesity - Counselled patient about lifestyle modifications, diet and exercise. Patient is motivated to loose weight. Full code. Lovenox while in the hospital. Pt Condition on Discharge: Good Discharge Disposition: Discharge Home Discharge Time: > 30 minutes Discharge Instructions DIET: Follow Instructions for: Heart Healthy Diet Activities you can perform: Regular-No Restrictions Follow up Referrals: PCP Follow-up - 1 Week New Orders: X-RAY CHEST PA & LAT - 4 Weeks New Medications: Amlodipine (Amlodipine) 10 Mg Tab 10 MG PO DAILY Blood Pressure Management #30 Ref 0 TAB Levofloxacin (Levaquin) 750 Mg Tab 750 MG PO DAILY Infection #5 Ref 0 TAB Metformin (Metformin) 500 Mg Tab 500 MG PO BIDPC With meals Blood Sugar Management #60 Ref 0 TAB Quetiapine (Seroquel) 25 Mg Tab 25 MG PO BID ANXIETY, INSOMNIA #60 Ref 0 TAB Lziijcghkn-Ijwglhmnepawh-Beeqktbb (Pdimtoqjxt-Onmkovrcbeqbm-Vxydsshk) 50-325-40 Mg Tab 1 TAB PO Q8HR PRN HEADACHE #12 TAB Continued Medications: Cyclobenzaprine (Flexeril) 10 Mg Tab 10 MG PO DAILY Muscle Spasm #90 Ref 0 TAB Discontinued Medications: Temazepam (Temazepam) 30 Mg Cap 30 MG PO HS PRN INSOMNIA #30 Ref 0 CAP Trazodone (Trazodone) 50 Mg Tab 50 MG PO HS Control Depression #30 Ref 0 TAB Maggie Galeano DO January 11, 2017 12:15
== END 2017-01-11 14:30 | disposition home or self-care (01) | DRG 871 ==
LOC: NEPE 11:36 → NEDA 14:26 → N04B 16:01
PROVIDERS: ADMIT Hospitalist; ATTEND Hospitalist
DX: A41.9 Sepsis, unspecified organism (principal); J18.9 Pneumonia, unspecified organism; Z68.43 Body mass index [BMI] 50.0-59.9, adult; J45.909 Unspecified asthma, uncomplicated; E87.5 Hyperkalemia; I10 Essential (primary) hypertension; E66.01 Morbid (severe) obesity due to excess calories; R65.20 Severe sepsis without septic shock; R73.9 Hyperglycemia, unspecified; R73.03 Prediabetes; Z23 Encounter for immunization; Z82.49 Family history of ischemic heart disease and other diseases of the circulatory system; Z88.0 Allergy status to penicillin; Z91.010 Allergy to peanuts
CPT/HCPCS: 36600; 71010; 71275; 76937; 78452; 80048; 80061; 82550; 82552; 82805; 83036; 83605; 83735; 83880; 84132; 84484; 85025; 85379; 85610; 85730; 87040; 90732; 93005; 93017; 94640; 94664; 96365; 96375; A9502; J0456; J0610; J0696; J1650; J1815; J1885; J1956; J2785; J2930; J7030; J7040; J7050; J7611; Q9967